=== PATIENT | female | born 1950 | race Caucasian/White ===

== ENCOUNTER 2019-09-02 17:00 | Inpatient (IN) | payer MEDICARE, OTHER ==
[~2019-09-02] VITALS: Ht 160 cm; Wt 124.9 kg
--- NOTE | 2019-09-02 17:09 | NUR ---
YOLIS From [facility] [place] by [employer] unit 195 "fever/more confused and weak than usual", TO ER BED 8, HOOKED TO MONITOR, CHANGED TO HOSP GOWN, WARM BLANKET PROVIDED, AWAITING MD THAYER.
--- NOTE | 2019-09-02 17:20 | NUR ---
DR MONIQUE AT BEDSIDE
--- NOTE | 2019-09-02 17:24 | NUR ---
URINE SAMPLE COLLECTED VIA STRAIGHT CATHETER, SENT SAMPLE TO LAB
--- NOTE | 2019-09-02 17:39 | NUR ---
RIVERINE ASSAULT CRAFT CREWMAN AT BEDSIDE
[2019-09-02 17:44] LABS: BASOPHILS # (AUTO) 0.1 /CMM (0.0-0.2); BASOPHILS % (AUTO) 0.6 % (0.0-2.0); HEMATOCRIT 40 % (33-45); LYMPHOCYTES # (AUTO) 1.9 /CMM (0.8-4.8); LYMPHOCYTES % (AUTO) 14.2 % (20.0-44.0); MEAN CORPUSCULAR HGB CONC 32 g/dl (31.0-36.0); MEAN CORPUSCULAR VOLUME 89 fL (82-100); MONOCYTES # (AUTO) 0.9 /CMM (0.1-1.30); MONOCYTES % (AUTO) 7.1 % (2.0-12.0); NEUTROPHILS # (AUTO) 10.3 /CMM (1.8-8.9); NEUTROPHILS % (AUTO) 78.1 % (43.0-81.0); PLATELET COUNT (AUTO) 257 /CMM (150-450); RED BLOOD CELL COUNT(AUTO) 4.48 MIL/uL (4.0-5.2); WHITE BLOOD COUNT (AUTO) 13.2 K/uL (4.3-11.0)
--- NOTE | 2019-09-02 17:49 | NUR ---
PLEASE NOTE: EKG WAS COMPLETED BY NESTOR FERNANDEZ AT [id number]
[2019-09-02 17:54] LABS: CALCIUM, SERUM 8.7 mg/dL (8.5-10.1); CARBON DIOXIDE 28 mmol/L (21-32); CHLORIDE 101 mmol/L (98-107); GLUCOSE 115 mg/dL (74-106); SODIUM SERUM 136 mmol/L (136-145); UREA NITROGEN, BLOOD 17 mg/dL (7-18)
[2019-09-02 17:59] LABS: APPEARANCE,URINE Clear (CLEAR); BILIRUBIN,URINE Negative (NEGATIVE); BLOOD, URINE Small Ery/uL (NEGATIVE); COLOR,URINE Yellow (YELLOW); KETONES,URINE Trace (NEGATIVE); LEUKOCYTE ESTERASE ,URINE Negative (NEGATIVE); NITRITE, URINE Negative (NEGATIVE); PROTEIN,URINE Negative (NEGATIVE); UGLUCOSE Negative (NEGATIVE); UROBILINOGEN,URINE 0.2 EU/dL (0.2)
[2019-09-02 18:00] LABS: ALANINE AMINOTRANSFERASE 6 U/L (12-78); ALBUMIN 3.1 g/dL (3.4-5.0); ALKALINE PHOSPHATASE 94 U/L (46-116); ASPARTATE AMINOTRANSFERASE 14 U/L (15-37); BILIRUBIN,TOTAL 0.2 mg/dL (0.2-1.0); TOTAL PROTEIN, SERUM 7.1 g/dL (6.4-8.2)
[2019-09-02 18:03] LABS: BACTERIA,URINE Few /HPF (None Seen); SQUAMOUS EPITHELIAL CELL,UR Few /HPF (None Seen)
[2019-09-02 18:04] LABS: WBC,URINE 0-2 /HPF (0-3)
[2019-09-02] MEDS ORDERED: PALI117D IM (18:29)
[2019-09-02] MEDS ORDERED: LEVO50TA8 PO (18:29)
[2019-09-02] MEDS ORDERED: MAGN400O6 PO (18:29)
[2019-09-02] MEDS ORDERED: DOCU-141 PO (18:29)
[2019-09-02] MEDS ORDERED: CRAN450C PO (18:29)
[2019-09-02] MEDS ORDERED: OLAN10TA3 PO (18:29)
[2019-09-02] MEDS ORDERED: FAMO20TA8 PO (18:29)
[2019-09-02] MEDS ORDERED: BISA10SU11 RC (18:29)
[2019-09-02] MEDS ORDERED: CEPH-570 PO (18:29)
[2019-09-02] MEDS ORDERED: SENN-168 PO (18:29)
[2019-09-02] MEDS ORDERED: DIVA250T4 PO (18:29)
[2019-09-02] MEDS ORDERED: LISI-603 PO (18:29)
[2019-09-02] MEDS ORDERED: ASPI-1169 PO (18:29)
[2019-09-02] MEDS ORDERED: ACET-868 PO (18:29)
[2019-09-02] MEDS ORDERED: CT SWABBABLE VALVE TRANS SET 1 EA INFUS.SET MC ONE (18:34)
[2019-09-02] MEDS ORDERED: IV NS 0.9% 250 ML IV ONE (18:34)
[2019-09-02] MEDS ORDERED: IOHEXOL-300 100 ML VIAL IV ONE (18:34)
--- NOTE | 2019-09-02 19:04 | NUR ---
PATIENT BACK FROM CT SCAN
--- NOTE | 2019-09-02 19:10 | NUR ---
REPORT GIVEN TO PAULA LOGAN FOR GELACIO
--- NOTE | 2019-09-02 19:10 | NUR ---
COVID TEST SENT TO LAB
--- NOTE | 2019-09-02 19:32 | NUR ---
CALLED [facility] ITS DR. JIMENEZ
--- NOTE | 2019-09-02 20:03 | NUR ---
PT BROUGHT TO CT FOR HEAD
--- NOTE | 2019-09-02 20:26 | NUR ---
Brought back from ct
--- NOTE | 2019-09-02 20:48 | NUR ---
PT AAOX3. RESPONSIVE. MD AT BEDSIDE.
--- NOTE | 2019-09-02 21:14 | NUR ---
REPORT GIVEN TO JAMI LOGAN FOR GELACIO
[2019-09-02] MEDS ORDERED: BISACODYL SUPP (10 MG) 10 MG/SUPP.RECT SUPP.RECT RC PRN (21:30)
[2019-09-02] MEDS ORDERED: VANCOMYCIN 1 GM in IV D5W 250 ML IV SCH (21:30)
--- NOTE | 2019-09-02 21:45 | NUR ---
PT TRANSFERED PER ACLS PROTOCOL.
[2019-09-02 22:00] VITALS: BP 106/44
[2019-09-02] MEDS: OLANZAPINE 10 MG TABLET PO SCH (22:00)
[2019-09-02] MEDS ORDERED: VANCOMYCIN 2 GM in IV D5W 500 ML IV ONE (22:30)
[2019-09-02] MEDS ORDERED: VANCOMYCIN 1 GM VIAL ONE (22:48)
[2019-09-02] MEDS: SENNOSIDES 8.6 MG TABLET PO SCH (23:01)
[2019-09-02 23:04] LABS: C-REACTIVE PROTEIN 6.4 mg/dL (0.0-0.9)
--- NOTE | 2019-09-03 00:29 | NUR ---
ANUJ/RN AT 2145, PATIENT WAS RECEIVED FROM [facility]IA [facility]. PATIENT WAS AWAKE, ALERT, ORIENTED, COMFORTABLE, NO C/O PAIN NO DISTRESS NOTED, NURSING CARE RENDERED MADE COMFORTABLE IN BED, ADMISSION DONE PER PROTOCOL, PATIENT UNABLE TO PROVIDE SOME ADMISSION INFORMATIONS, PHYSICAL ASSESSMENT WAS DONE, PHOTOS WERE TAKEN WITH PATIENT'S CONSENT, PLAN OF CARE DISCUSSED, VERBALIZED UNDERSTANDING AND AGREEMENT, TAUGHT THE USE OF CALL LIGHT AND PLACED IT AT BEDSIDE WITHIN REACH, FALL PRECAUTIONS PER PROTOCOL, DROPLET/CONTACT ISOLATION FOR POSSIBLE COVID, WILL MONITOR.
[2019-09-03 01:41] VITALS: BP 119/68
[2019-09-03 04:00] VITALS: BP 116/62
--- NOTE | 2019-09-03 06:38 | NUR ---
ANUJ/RN PATIENT IS AWAKE, ALERT AND ORIENTED AT THIS TIME, NO C/O PAIN, NO SIGNS OF DISTRESS NOTED, CALL LIGHT IN REACH, ALL NEEDS ATTENDED AT THIS TIME, WILL CONTINUE TO MONITOR.
[2019-09-03] MEDS: LEVOTHYROXINE SODIUM 50 MCG TABLET PO SCH (07:38)
[2019-09-03] MEDS ORDERED: FEE PK DOSING 1 MIN EA MC ONE (07:42)
--- NOTE | 2019-09-03 07:43 | NUR ---
WOUND CARE CONSULT: LIMITED ASSESSMENT TODAY DUE TO PT SCREAMING AND REFUSING FULL SKIN ASSESSMENT. PT STATED " I WANT A SMALLPOX TEST" LEFT SIDE OF FACE NOTED TO BE RED, PRESENT ON ADMISSION. WILL SEE PRN. RECOMMENDATIONS MADE FOR SKIN PROTECTION AND DISCUSSED WITH NURSING STAFF. CURRENT JUJU SCORE IS 19. MD IN AGREEMENT WITH PLAN OF CARE.
[2019-09-03 08:00] VITALS: BP 118/72
[2019-09-03] MEDS ORDERED: Z GUARD REMEDY 2 OZ OINT TP PRN (08:00)
[2019-09-03] MEDS: ASPIRIN 81 MG TAB.CHEW PO SCH (08:25)
[2019-09-03] MEDS: DIVALPROEX SODIUM 250 MG TABLET.DR PO SCH ×3 (08:25→16:11)
[2019-09-03] MEDS: DOCUSATE SODIUM 100 MG CAPSULE PO SCH ×2 (08:25→16:11)
[2019-09-03] MEDS: Z GUARD REMEDY 2 OZ OINT TP SCH (08:26)
[2019-09-03] MEDS: FAMOTIDINE (20 MG) 20 MG TABLET PO SCH (08:48)
[2019-09-03] MEDS: ENOXAPARIN SODIUM 40 MG/0.4 ML DISP.SYRIN SQ SCH (08:50)
[2019-09-03] MEDS ORDERED: LISINOPRIL (20MG) 20 MG TABLET PO SCH (09:00)
--- NOTE | 2019-09-03 10:44 | NUR ---
TELE/RN NOTES TECH FROM RADIOLOGY ARRIVE AT THE UNIT TO TAKE PATIENT FOR CT BUT THE PATIENT IS REFUSING. EXPLAINED RISK AND BENEFITS X3. STILL REFUSED X3. PATIENT CONTINUES TO REMAIN IN STABLE CONDITION. WILL CONTINUE TO MONITOR CLOSELY.
[2019-09-03 12:00] VITALS: BP 130/78
[2019-09-03] MEDS: MUPIROCIN OINT 2% 22 GM TUBE SCH ×2 (15:41→20:28)
[2019-09-03] MEDS: VANCOMYCIN 1.5 GM in IV D5W 500ml IV SCH (16:12)
--- NOTE | 2019-09-03 18:55 | NUR ---
TELE/RN CLOSING NOTES PATIENT CONTINUES TO REMAIN IN STABLE CONDITION THROUGHOUT THE SHIFT. PROVIDED COMFORT AND SAFETY. PATIENT ABLE TO TOLERATE MEALS AND MEDS WELL. NO PAIN OR ACUTE DISTRESS AT THIS TIME. RESPIRATION EVEN AND UNLABORED. SKIN IS DRY WARM TO TOUCH. ALL NEEDS ANTICIPATED. CALL LIGHT WITHIN REACHED. BED LOCKED AND IN LOWEST POSITION. SAFETY MAINTAINED. ENDORSED TO PM NURSE FOR GELACIO.
--- NOTE | 2019-09-03 19:20 | NUR ---
RN OPENING NOTE Addendum: 09/03/19 at 2325 by CARMENZA DENSON RN RECEIVED PATIENT IN BED SLEEPING IN SEMI GUILLEN'S POSITION BUT EASILY AROUSABLE. PATIENT IS ALERT AND ORIENTED X 3 BUT WITH PERIODS OF CONFUSION. NO SIGNS OR DISTRESS OR DISCOMFORT. PT MADE COMFORTABLE. CALL LIGHT WITHIN REACH, BED ALARM ON, SAFETY MEASURES IN PLACE, WILL MONITOR.
[2019-09-03 20:00] VITALS: BP 94/53
[2019-09-03] MEDS: OLANZAPINE 10 MG TABLET PO SCH (21:00)
[2019-09-03] MEDS: SENNOSIDES 8.6 MG TABLET PO SCH (21:01)
[2019-09-04] VITALS (7 sets, daily range): BP systolic 97–132; BP diastolic 49–81
--- NOTE | 2019-09-04 06:03 | NUR ---
RN NOTE PILOT MANAGER BECKY Pascual AT BEDSIDE AND OFFERED TO DRAW BLOOD FROM PATIENT FOR TODAY'S AM LABS. PT REQUESTED THAT PILOT MANAGER COME LATER IN THE MORNING TO DRAW BLOOD.
--- NOTE | 2019-09-04 06:38 | NUR ---
CONTRACTING MANAGER/CLOSING NOTE PT AWAKE AND ALERT IN BED IN SEMI GUILLEN'S POSITION. PATIENT IS ALERT AND ORIENTED X 3 BUT WITH PERIODS OF FORGETFULNESS AND CONFUSION. NO SIGNS OR DISTRESS OR DISCOMFORT. DENIES PAIN. PT MADE COMFORTABLE. CALL LIGHT WITHIN REACH, BED ALARM ON, SAFETY MEASURES IN PLACE, WILL ENDORSE TO MORNING SHIFT FOR CONTINUATION OF CARE.
[2019-09-04] MEDS: FAMOTIDINE (20 MG) 20 MG TABLET PO SCH (07:41)
[2019-09-04] MEDS: LEVOTHYROXINE SODIUM 50 MCG TABLET PO SCH (07:41)
[2019-09-04] MEDS: DOCUSATE SODIUM 100 MG CAPSULE PO SCH ×2 (09:01→16:24)
[2019-09-04] MEDS: ASPIRIN 81 MG TAB.CHEW PO SCH (09:01)
[2019-09-04] MEDS: DIVALPROEX SODIUM 250 MG TABLET.DR PO SCH ×3 (09:01→16:24)
[2019-09-04] MEDS: Z GUARD REMEDY 2 OZ OINT TP SCH (09:02)
[2019-09-04] MEDS: ENOXAPARIN SODIUM 40 MG/0.4 ML DISP.SYRIN SQ SCH (09:05)
[2019-09-04] MEDS: MUPIROCIN OINT 2% 22 GM TUBE SCH ×2 (09:06→21:01)
[2019-09-04 09:13] LABS: BASOPHILS % (AUTO) 0.5 % (0.0-2.0); EOSINOPHILS % (AUTO) 2.4 % (0.0-6.0); HEMATOCRIT 40 % (33-45); HEMOGLOBIN 13.1 g/dL (11.5-14.8); LYMPHOCYTES # (AUTO) 2.2 /CMM (0.8-4.8); LYMPHOCYTES % (AUTO) 28.2 % (20.0-44.0); MEAN CORPUSCULAR HGB CONC 33 g/dl (31.0-36.0); MEAN CORPUSCULAR VOLUME 89 fL (82-100); MONOCYTES # (AUTO) 0.7 /CMM (0.1-1.30); MONOCYTES % (AUTO) 8.9 % (2.0-12.0); NEUTROPHILS # (AUTO) 4.6 /CMM (1.8-8.9); PLATELET COUNT (AUTO) 248 /CMM (150-450); RED BLOOD CELL COUNT(AUTO) 4.42 MIL/uL (4.0-5.2); WHITE BLOOD COUNT (AUTO) 7.7 K/uL (4.3-11.0)
[2019-09-04] MEDS: VANCOMYCIN 1.5 GM in IV D5W 500ml IV SCH (10:10)
[2019-09-04] MEDS: LISINOPRIL (10MG) 10 MG TABLET PO SCH (10:58)
--- NOTE | 2019-09-04 13:00 | NUR ---
TELE/RN NOTES PATIENT WAS SEEN AND EVALUATED BY DR. HILL WITH NO NEW ORDERS AT THIS TIME. PATIENT CONTINUES TO REMAIN IN STABLE CONDITION. WILL CONTINUE TO MONITOR CLOSELY.
--- NOTE | 2019-09-04 19:10 | NUR ---
RN OPENING NOTES RECEIVED PT ON BED AWAKE EATING DINNER, AOX3 WITH EPISODE OF CONFUSION, ON RA O2 SAT 98%, L FACE AND REDNESS STILL NOTED, ON TELE MONITOR WITH READING SR 80'S, SAFETY MEASURE MAINTAINED BED ON LOWEST POSITION AND LOCKED CALL LIGHT WITHIN REACH SIDE RAILS UP X3 WILL CONT TO MONITOR THE PT
[2019-09-04] MEDS: OLANZAPINE 10 MG TABLET PO SCH (21:02)
[2019-09-04] MEDS: SENNOSIDES 8.6 MG TABLET PO SCH (21:02)
[2019-09-05 00:28] VITALS: BP 121/81
[2019-09-05 00:37] VITALS: BP 121/81
[2019-09-05 04:00] VITALS: BP 113/59
[2019-09-05 04:16] VITALS: BP 113/59
[2019-09-05 06:04] LABS: CALCIUM, SERUM 8.8 mg/dL (8.5-10.1); CREATININE 0.9 mg/dL (0.6-1.3); MAGNESIUM 1.7 mg/dL (1.8-2.4); PHOSPHORUS 3.8 mg/dL (2.5-4.9); POTASSIUM 4.3 mmol/L (3.5-5.1)
[2019-09-05 06:23] LABS: HEMOGLOBIN 13.2 g/dL (11.5-14.8)
[2019-09-05] MEDS: VANCOMYCIN 1.5 GM in IV D5W 500ml IV SCH (06:47)
[2019-09-05 06:59] LABS: BASOPHILS % (AUTO) 0.3 % (0.0-2.0); EOSINOPHILS % (AUTO) 3.1 % (0.0-6.0); HEMATOCRIT 40 % (33-45); LYMPHOCYTES # (AUTO) 2.1 /CMM (0.8-4.8); LYMPHOCYTES % (AUTO) 28.3 % (20.0-44.0); MEAN CORPUSCULAR HGB CONC 33 g/dl (31.0-36.0); MEAN CORPUSCULAR VOLUME 89 fL (82-100); MONOCYTES # (AUTO) 0.6 /CMM (0.1-1.30); MONOCYTES % (AUTO) 8.1 % (2.0-12.0); NEUTROPHILS # (AUTO) 4.4 /CMM (1.8-8.9); NEUTROPHILS % (AUTO) 60.2 % (43.0-81.0); PLATELET COUNT (AUTO) 270 /CMM (150-450); WHITE BLOOD COUNT (AUTO) 7.3 K/uL (4.3-11.0)
--- NOTE | 2019-09-05 07:17 | NUR ---
RN CLOSING NOTES PT ON STABLE CONDITION NO SIGN AND SYMPTOMS OF RESPIRATORY DISTRESS, NO PAIN NOTED, NO SIGNIFICANT CHANGES ON CONDITION NOTED, STILL ON TELE WITH READING SR 80'S ALL NEEDS ATTENDED SAFETY MEASURE MAINTAINED BED ON LOWEST POSITION AND LOCKED CALL LIGHT WITHIN REACH WILL ENDORSE TO AM SHIFT NURSE
--- NOTE | 2019-09-05 07:20 | NUR ---
RN OPENING NOTE: RECEIVED PATIENT IN BED THIS MORNING. PATIENT IS ALERT AND ORIENTED X3, RESPONDS APPROPRIATELY. PSYCHOTIC SYMPTOMS NOTED. PATIENT STATES THERE'S MAGGOTS IN THE BACK OF HER THROAT AND STATES SHE FEELS THE TAPEWORMS. PATIENT IS ALSO TALKING NON-SENSE WITH TOPICS THAT DON'T MAKE SENSE. OBSERVED HER MOUTH AND NOTHING NOTED. PATIENT DENIES VAH, SI/HI AT THIS TIME. ON RA, NO SIGNS OF RESPIRATORY DISTRESS NOTED. NO SIGNS OF ACUTE DISTRESS NOTED. PATIENT STILL HAS REDNESS ON THE LEFT SIDE OF FACE. PATIENT IS ON TELE MONITOR, SR 64. #24 ON L HAND, C/D/I, FLUSHES WELL, NO SIGNS OF COMPLICATIONS NOTED, VANCOMYCIN HANGING AT THIS TIME. SAFETY MEASURES IMPLEMENTED, BED IN LOWEST POSITION, LOCKED, SIDE RAILS UP X2, CALL LIGHT WITHIN REACH. WILL CONTINUE TO MONITOR PATIENT FOR CHANGES, SAFETY AND BEHAVIOR.
[2019-09-05] MEDS: LEVOTHYROXINE SODIUM 50 MCG TABLET PO SCH ×2 (07:30→08:07)
[2019-09-05] MEDS: FAMOTIDINE (20 MG) 20 MG TABLET PO SCH ×2 (07:30→08:07)
[2019-09-05 08:00] VITALS: BP 115/58
[2019-09-05 08:07] VITALS: BP 115/58
[2019-09-05] MEDS: ASPIRIN 81 MG TAB.CHEW PO SCH (08:07)
[2019-09-05] MEDS: ENOXAPARIN SODIUM 40 MG/0.4 ML DISP.SYRIN SQ SCH (08:07)
[2019-09-05] MEDS: LISINOPRIL (10MG) 10 MG TABLET PO SCH (08:07)
[2019-09-05] MEDS: DIVALPROEX SODIUM 250 MG TABLET.DR PO SCH ×3 (08:07→12:39)
[2019-09-05] MEDS: DOCUSATE SODIUM 100 MG CAPSULE PO SCH ×2 (08:07→08:42)
[2019-09-05] MEDS: Magnesium 1GM/D5W 100ML PREMIX 100 ML IV SCH ×2 (08:08→09:30)
[2019-09-05] MEDS: Z GUARD REMEDY 2 OZ OINT TP SCH (08:08)
[2019-09-05] MEDS: MUPIROCIN OINT 2% 22 GM TUBE SCH (08:09)
--- NOTE | 2019-09-05 08:30 | NUR ---
PATIENT REFUSED HER SYNTHROID, COLACE, PEPCID AND DEPAKOTE. MADE MULTIPLE ATTEMPTS IN ADMINISTRATION AND EXPLAINED THE IMPORTANCE OF THE MEDICATIONS, PATIENT CONTINUES TO REFUSE. ALSO PORTRAYING PARANOID BEHAVIOR. INFORMED DR DONG. Addendum: 09/05/19 at 1239 by GAUDENCIO MISTRY RN PATIENT REFUSED 1300 DEPAKOTE
[2019-09-05] MEDS ORDERED: LISINOPRIL (20MG) 20 MG TABLET PO SCH (09:00)
[2019-09-05] MEDS ORDERED: Magnesium 1GM/D5W 100ML PREMIX 100 ML IV SCH (09:41)
[2019-09-05] MEDS ORDERED: RXVAN XX (11:21)
[2019-09-05] MEDS ORDERED: LISI10TA5 PO (11:21)
[2019-09-05] MEDS ORDERED: ENOX40DI SQ (11:21)
[2019-09-05] MEDS ORDERED: VANC1.5P20 IV (11:21)
[2019-09-05] MEDS ORDERED: MUPI22OI7 ×2 (11:21→11:25)
--- NOTE | 2019-09-05 13:44 | NUR ---
REPORT GIVEN TO RIAZ Anglin FROM [facility] [phone] Addendum: 09/05/19 at 1400 by GAUDENCIO MISTRY RN RIAZ Langley RN
--- NOTE | 2019-09-05 16:17 | NUR ---
VICE PRESIDENT OF TALENT ACQUISITION NOTE: PATIENT DC TO [facility] [place]. UPON DISCHARGE ASSESSMENT, NO ACUTE DISTRESS NOTED, NO COMPLAINTS, NO RESPIRATORY DISTRESS NOTED. PATIENT IS COOPERATIVE WITH PLAN OF CARE, SELECTIVE WITH MEDICATION MANAGEMENT. PER RN REQUEST, IVSL REMAINS ON PATIENT FOR CONTINUED ABX THERAPY IN SNF. WOUND PICTURES TAKEN AND PLACED IN CHART. DC PAPERWORK SIGNED. DENIES SI/HI AT THIS TIME, MILD VISUAL HALLUCINATIONS NOTED, DENIES ANY COMMAND HALLUCINATIONS. REPORT GIVEN TO DOREEN MELLO. PATIENT LEFT [facility]IA [facility]IA [facility]ULANCE AT 1545.
== END 2019-09-05 15:45 | DRG 91 ==
LOC: ER 17:00 → MEDSG1 21:07 → TELE1 21:24 → MEDSG1 09-05 10:46
PROVIDERS: ATTEND Nurse Practitioner Acute Care
DX: G96.0 Cerebrospinal fluid leak (principal); G93.41 Metabolic encephalopathy; L03.211 Cellulitis of face; K21.0 Gastro-esophageal reflux disease with esophagitis; J44.9 Chronic obstructive pulmonary disease, unspecified; R19.00 Intra-abdominal and pelvic swelling, mass and lump, unspecified site; K80.20 Calculus of gallbladder without cholecystitis without obstruction; K44.9 Diaphragmatic hernia without obstruction or gangrene; Z98.2 Presence of cerebrospinal fluid drainage device; Z86.73 Personal history of transient ischemic attack (TIA), and cerebral infarction without residual deficits; Z79.82 Long term (current) use of aspirin; M81.0 Age-related osteoporosis without current pathological fracture; F41.9 Anxiety disorder, unspecified; G20 Parkinson's disease; F02.80 Dementia in other diseases classified elsewhere, unspecified severity, without behavioral disturbance, psychotic disturbance, mood disturbance, and anxiety; E78.5 Hyperlipidemia, unspecified; N28.1 Cyst of kidney, acquired; E27.8 Other specified disorders of adrenal gland; F32.9 Major depressive disorder, single episode, unspecified; Z88.8 Allergy status to other drugs, medicaments and biological substances; K57.30 Diverticulosis of large intestine without perforation or abscess without bleeding; M47.816 Spondylosis without myelopathy or radiculopathy, lumbar region; Z79.899 Other long term (current) drug therapy; D17.5 Benign lipomatous neoplasm of intra-abdominal organs
CPT/HCPCS: 36415; 70450-TC; 71045-TC; 71260-TC; 80048-TC; 80076-TC; 80202-TC; 81000-TC; 82550-TC; 82728-TC; 83605-TC; 83735-TC; 83880; 84100-TC; 84484-TC; 85025-TC; 85378-TC; 85730-TC; 86140-TC; 87040-TC; 87081-TC; 87086-TC; 93307-TC; A4349; G0378; J1650; J3370; J3475; J7050; J7060; Q9967; U0002